=== PATIENT | male | born 1935 | race African-American/Black ===

== ENCOUNTER 2018-01-14 01:08 | Emergency (ER) | payer MEDICARE ==
[~2018-01-14] VITALS: Ht 177.8 cm; Wt 102.0 kg
[~2018-01-14 01:08] MED LIST: AMBRISENTAN 5 MG PO; AMLO10TA4 PO; CLON0.1T PO; FERR-63 PO; FLUT1DIS3 IH; FURO40TA5 PO; HYDR-4135 PO; MINO2.5T19 PO; OMEP20TA2 PO; POTA10CA42 PO; SIMV80TA70 PO
[2018-01-14 02:54] LABS: CLARITY URINE CLOUDY (CLEAR); COLOR URINE YELLOW (YELLOW); KETONES URINE NEGATIVE (NEGATIVE); LEUKOCYTE ESTERASE URINE 2+ (NEGATIVE); NITRITE URINE NEGATIVE (NEGATIVE); OCCULT BLOOD URINE 2+ (NEGATIVE); PROTEIN URINE 2+ (NEGATIVE); SPECIFIC GRAVITY URINE 1.015 (1.005-1.030)
[2018-01-14] MEDS ORDERED: CEPHALEXIN 500MG CAPSULE PO SCH (04:42)
[2018-01-14 05:27] VITALS: BP 121/74
== END 2018-01-14 05:30 | disposition home or self-care (01) ==
LOC: ER 01:08
DX: T83.098A Other mechanical complication of other urinary catheter, initial encounter (principal); N39.0 Urinary tract infection, site not specified; I11.0 Hypertensive heart disease with heart failure; I50.9 Heart failure, unspecified; J44.9 Chronic obstructive pulmonary disease, unspecified; I48.91 Unspecified atrial fibrillation; F20.9 Schizophrenia, unspecified; E11.9 Type 2 diabetes mellitus without complications; N40.0 Benign prostatic hyperplasia without lower urinary tract symptoms; Z86.73 Personal history of transient ischemic attack (TIA), and cerebral infarction without residual deficits
CPT/HCPCS: 51702; 81003; 87077; 87086; 87106; 87186; 99284; A4315

== ENCOUNTER 2018-03-07 23:52 | Inpatient (IN) | payer MEDICARE ==
[~2018-03-07] VITALS: Ht 177.8 cm; Wt 101.2 kg
[2018-03-08] MEDS ORDERED: ACETAMINOPHEN 325MG TABLET PO STA (00:05)
[2018-03-08] MEDS ORDERED: SODIUM CHLORIDE 0.9% 1000ML BAG (SEPSIS BOLUS) IV ONE (00:15)
[2018-03-08 01:51] LABS: BASOPHILS % 1.3 % (0.0-2.0); EOSINOPHILS % 0.8 % (0.0-5.0); HEMATOCRIT. 26.7 % (42.0-52.0); HEMOGLOBIN. 8.9 g/dL (14.0-18.0); LYMPHOCYTES % 21.8 % (20.0-50.0); MEAN CORPUSCULAR HEMOGLOBIN 28.5 pg (28.0-32.0); MEAN CORPUSCULAR VOLUME 85.8 fL (80.0-94.0); MEAN PLATELET VOLUME 8.6 fl (7.4-10.4); MONOCYTES % 11.8 % (2.0-8.0); NEUTROPHILS % 64.3 % (40.0-76.0); PLATELET 210 x1000/uL (130-400); RED BLOOD CELL COUNT 3.12 mill/uL (4.7-6.1); RED CELL DISTRIBUTION WIDTH 16.9 % (11.6-14.6)
[2018-03-08] MEDS ORDERED: PIPERACILLIN/TAZ 3.375G PREMIX 50 ML IV ONE (02:00)
[2018-03-08] MEDS ORDERED: VANCOMYCIN 1 G PREMIX 200 ML IV ONE (02:00)
[2018-03-08 02:03] LABS: CHLORIDE 106 mEq/L (98-107)
[2018-03-08 02:06] LABS: INR 1.1; PROTHROMBIN TIME 11.9 sec (9.4-11.6)
[2018-03-08] MEDS ORDERED: PIPERACILLIN/TAZ 3.375G PREMIX 50 ML IV SCH (02:39)
[2018-03-08 02:44] LABS: CLARITY URINE CLOUDY (CLEAR); COLOR URINE YELLOW (YELLOW); KETONES URINE NEGATIVE (NEGATIVE); LEUKOCYTE ESTERASE URINE 2+ (NEGATIVE); NITRITE URINE NEGATIVE (NEGATIVE); OCCULT BLOOD URINE NEGATIVE (NEGATIVE); PH URINE >=9.0 (4.5-8.0); PROTEIN URINE 1+ (NEGATIVE); SPECIFIC GRAVITY URINE 1.012 (1.005-1.030); UROBILINOGEN URINE 0.2 E.U./dL (0.2-1.0)
[2018-03-08] MEDS ORDERED: ACETAMINOPHEN 325MG TABLET PO PRN (19:15)
[2018-03-08] MEDS ORDERED: IPRATROPIUM/ALBUTEROL 0.5-3(2.5)MG/3ML NEB INH PRN (19:15)
[2018-03-08] MEDS ORDERED: ONDANSETRON HCL 4MG/2ML VIAL IV PRN (19:15)
[2018-03-08] MEDS ORDERED: MAGNESIUM/ALUMINUM HYDROXIDE/SIMETHICONE 30ML UDC PO PRN (19:15)
[2018-03-08] MEDS ORDERED: CLONIDINE 0.1MG TABLET PO PRN (19:15)
[2018-03-08] MEDS ORDERED: HYDROCODONE/ACETAMINOPHEN 5/325MG TABLET PO PRN (19:15)
[2018-03-08 20:00] VITALS: BP 163/76
[2018-03-08 21:00] VITALS: BP 163/76
[2018-03-08] MEDS ORDERED: ROCEPHIN IVPB XX SCH (21:15)
[2018-03-08] MEDS: FUROSEMIDE 40MG/4ML VIAL IV SCH (21:40)
[2018-03-08] MEDS: ENOXAPARIN 40MG/0.4ML SYR SUBCUT SCH (21:40)
[2018-03-08] MEDS: CEFTRIAXONE 1 G PREMIX 50 ML IV SCH (21:40)
[2018-03-08] MEDS: AMLODIPINE 10MG TABLET PO SCH (22:14)
[2018-03-08] MEDS: FERROUS SULFATE 325MG TABLET PO SCH (22:14)
[2018-03-09] VITALS: BP 136/60
[2018-03-09 02:12] LABS: *AMPHETAMINES SCREEN URINE NEGATIVE (NEGATIVE); *BARBITURATES SCREEN URINE NEGATIVE (NEGATIVE); *BENZODIAZEPINES SCREEN URINE NEGATIVE (NEGATIVE); *COCAINE SCREEN URINE NEGATIVE (NEGATIVE)
[2018-03-09 02:13] LABS: CANNABINOID URINE SCREEN NEGATIVE (NEGATIVE); METHADONE URINE SCREEN NEGATIVE (NEGATIVE); OPIATES URINE SCREEN NEGATIVE (NEGATIVE); PHENCYCLIDINE URINE SCREEN NEGATIVE (NEGATIVE)
[2018-03-09 04:00] VITALS: BP 109/57
[2018-03-09 08:00] VITALS: BP 122/57
[2018-03-09 08:06] LABS: AMMONIA 19 uMol/L (<32)
[2018-03-09] MEDS: FERROUS SULFATE 325MG TABLET PO SCH (08:49)
[2018-03-09] MEDS: AMLODIPINE 10MG TABLET PO SCH (08:50)
[2018-03-09] MEDS: FUROSEMIDE 40MG/4ML VIAL IV SCH (08:55)
[2018-03-09 09:19] LABS: CHLORIDE 104 mEq/L (98-107)
[2018-03-09 09:31] LABS: LDL CHOLESTEROL 132 mg/dL (5-100)
[2018-03-09 09:32] LABS: CREATINE KINASE 34 IU/L (39-308)
[2018-03-09 09:33] LABS: HDL CHOLESTEROL 32 mg/dL (40-59)
[2018-03-09 09:36] LABS: CREATINE KINASE MB FRACTION < 0.5 ng/mL (0.5-3.6)
[2018-03-09 12:00] VITALS: BP 116/52
[2018-03-09 12:09] LABS: HEMATOCRIT. 28.8 % (42.0-52.0); HEMOGLOBIN. 9.3 g/dL (14.0-18.0); MEAN CORPUSCULAR VOLUME 86.8 fL (80.0-94.0); MEAN PLATELET VOLUME 8.5 fl (7.4-10.4); PLATELET 215 x1000/uL (130-400); RED BLOOD CELL COUNT 3.32 mill/uL (4.7-6.1); RED CELL DISTRIBUTION WIDTH 16.9 % (11.6-14.6)
[2018-03-09] MEDS: CEFTRIAXONE 1 G PREMIX 50 ML IV SCH (14:12)
[2018-03-09 16:00] VITALS: BP 130/51
[2018-03-09 19:55] LABS: PLATELET ESTIMATE NORMAL
[2018-03-09 20:00] VITALS: BP 123/62
[2018-03-09] MEDS: IPRATROPIUM/ALBUTEROL 0.5-3(2.5)MG/3ML NEB HHN SCH (20:25)
[2018-03-09] MEDS: BUDESONIDE 0.5MG/2ML NEB HHN SCH (20:25)
[2018-03-09] MEDS: ATORVASTATIN CALCIUM 10MG TABLET PO SCH (21:52)
[2018-03-09] MEDS: ENOXAPARIN 40MG/0.4ML SYR SUBCUT SCH (21:52)
[2018-03-10] VITALS: BP 121/58
[2018-03-10] MEDS: IPRATROPIUM/ALBUTEROL 0.5-3(2.5)MG/3ML NEB HHN SCH ×4 (00:09→21:36)
[2018-03-10 04:00] VITALS: BP 135/58
[2018-03-10 08:00] VITALS: BP 145/63
[2018-03-10] MEDS: BUDESONIDE 0.5MG/2ML NEB HHN SCH ×2 (08:01→21:35)
[2018-03-10 08:46] LABS: HEMOGLOBIN. 9.8 g/dL (14.0-18.0); MEAN CORPUSCULAR HEMOGLOBIN 28.2 pg (28.0-32.0); MEAN CORPUSCULAR VOLUME 86.3 fL (80.0-94.0); MEAN PLATELET VOLUME 8.3 fl (7.4-10.4); PLATELET 234 x1000/uL (130-400); RED BLOOD CELL COUNT 3.48 mill/uL (4.7-6.1); RED CELL DISTRIBUTION WIDTH 16.5 % (11.6-14.6)
[2018-03-10 08:50] LABS: CHLORIDE 102 mEq/L (98-107)
[2018-03-10 09:04] LABS: CREATINE KINASE MB FRACTION < 0.5 ng/mL (0.5-3.6)
[2018-03-10] MEDS: FUROSEMIDE 40MG/4ML VIAL IV SCH (09:10)
[2018-03-10] MEDS: AMLODIPINE 10MG TABLET PO SCH (09:12)
[2018-03-10] MEDS: FERROUS SULFATE 325MG TABLET PO SCH ×2 (09:12→09:24)
[2018-03-10 09:15] LABS: PHOSPHORUS 3.2 mg/dL (2.5-4.9)
[2018-03-10 09:16] LABS: CREATINE KINASE 34 IU/L (39-308); LDL CHOLESTEROL 124 mg/dL (5-100)
[2018-03-10 09:19] LABS: HDL CHOLESTEROL 32 mg/dL (40-59)
[2018-03-10 12:00] VITALS: BP 130/62
[2018-03-10] MEDS ORDERED: POTASSIUM CHLORIDE 20MEQ/PACKET PO SCH (12:30)
[2018-03-10 13:47] LABS: PLATELET ESTIMATE NORMAL
[2018-03-10] MEDS ORDERED: MAGNESIUM 1 G PREMIX 100 ML IV SCH (14:00)
[2018-03-10] MEDS: CEFTRIAXONE 1 G PREMIX 50 ML IV SCH (14:00)
[2018-03-10] MEDS ORDERED: IOHEXOL-300 100 ML BOTTLE ONE (15:56)
[2018-03-10 16:00] VITALS: BP 137/61
[2018-03-10 20:00] VITALS: BP 121/52
[2018-03-10] MEDS: ATORVASTATIN CALCIUM 10MG TABLET PO SCH (21:20)
[2018-03-10] MEDS: ENOXAPARIN 40MG/0.4ML SYR SUBCUT SCH (21:21)
[2018-03-11] VITALS: BP 113/52
[2018-03-11] MEDS: IPRATROPIUM/ALBUTEROL 0.5-3(2.5)MG/3ML NEB HHN SCH ×4 (02:45→21:00)
[2018-03-11 04:00] VITALS: BP 100/56
[2018-03-11 06:52] LABS: HEMATOCRIT. 29.5 % (42.0-52.0); HEMOGLOBIN. 9.6 g/dL (14.0-18.0); MEAN CORPUSCULAR HEMOGLOBIN 27.9 pg (28.0-32.0); MEAN CORPUSCULAR VOLUME 85.8 fL (80.0-94.0); MEAN PLATELET VOLUME 8.1 fl (7.4-10.4); PLATELET 213 x1000/uL (130-400); RED BLOOD CELL COUNT 3.44 mill/uL (4.7-6.1); RED CELL DISTRIBUTION WIDTH 16.8 % (11.6-14.6)
[2018-03-11 07:05] LABS: CHLORIDE 101 mEq/L (98-107)
[2018-03-11 08:00] VITALS: BP 142/62
[2018-03-11] MEDS: BUDESONIDE 0.5MG/2ML NEB HHN SCH ×2 (08:36→21:01)
[2018-03-11] MEDS: AMLODIPINE 10MG TABLET PO SCH (08:52)
[2018-03-11] MEDS ORDERED: POTASSIUM CHLORIDE 20MEQ TABLET SR PO SCH (10:30)
[2018-03-11 10:49] LABS: PLATELET ESTIMATE NORMAL
[2018-03-11] MEDS: FUROSEMIDE 40MG/4ML VIAL IV SCH (11:33)
[2018-03-11 12:00] VITALS: BP 133/61
[2018-03-11] MEDS: CEFTRIAXONE 1 G PREMIX 50 ML IV SCH (14:51)
[2018-03-11 16:00] VITALS: BP 136/83
[2018-03-11 20:00] VITALS: BP 111/60
[2018-03-11] MEDS: ATORVASTATIN CALCIUM 10MG TABLET PO SCH (20:15)
[2018-03-12] VITALS: BP 118/61
[2018-03-12] MEDS: IPRATROPIUM/ALBUTEROL 0.5-3(2.5)MG/3ML NEB HHN SCH ×4 (00:49→19:59)
[2018-03-12 03:45] VITALS: BP 127/57
[2018-03-12 07:07] LABS: CHLORIDE 99 mEq/L (98-107)
[2018-03-12 07:19] LABS: HEMATOCRIT. 31.1 % (42.0-52.0); HEMOGLOBIN. 10.2 g/dL (14.0-18.0); MEAN CORPUSCULAR HEMOGLOBIN 28.4 pg (28.0-32.0); MEAN CORPUSCULAR VOLUME 86.7 fL (80.0-94.0); MEAN PLATELET VOLUME 8.4 fl (7.4-10.4); PLATELET 219 x1000/uL (130-400); RED BLOOD CELL COUNT 3.59 mill/uL (4.7-6.1); RED CELL DISTRIBUTION WIDTH 16.3 % (11.6-14.6)
[2018-03-12 08:00] VITALS: BP 151/66
[2018-03-12] MEDS: BUDESONIDE 0.5MG/2ML NEB HHN SCH (08:22)
[2018-03-12] MEDS: FERROUS SULFATE 325MG TABLET PO SCH (08:52)
[2018-03-12] MEDS: AMLODIPINE 10MG TABLET PO SCH (08:52)
[2018-03-12] MEDS: FUROSEMIDE 40MG/4ML VIAL IV SCH (09:29)
[2018-03-12 12:00] VITALS: BP 138/79
[2018-03-12 13:43] LABS: PLATELET ESTIMATE NORMAL
[2018-03-12] MEDS: CEFTRIAXONE 1 G PREMIX 50 ML IV SCH (15:23)
[2018-03-12 16:00] VITALS: BP 133/64
[2018-03-12 20:00] VITALS: BP 140/61
[2018-03-12] MEDS: ATORVASTATIN CALCIUM 10MG TABLET PO SCH (21:32)
[2018-03-13 00:26] VITALS: BP 133/60
[2018-03-13] MEDS: IPRATROPIUM/ALBUTEROL 0.5-3(2.5)MG/3ML NEB HHN SCH ×4 (01:09→19:50)
[2018-03-13 04:00] VITALS: BP 115/57
[2018-03-13 07:46] LABS: HEMATOCRIT. 31.7 % (42.0-52.0); HEMOGLOBIN. 10.2 g/dL (14.0-18.0); MEAN CORPUSCULAR HEMOGLOBIN 27.8 pg (28.0-32.0); MEAN CORPUSCULAR VOLUME 86.6 fL (80.0-94.0); MEAN PLATELET VOLUME 8.1 fl (7.4-10.4); PLATELET 230 x1000/uL (130-400); RED BLOOD CELL COUNT 3.66 mill/uL (4.7-6.1); RED CELL DISTRIBUTION WIDTH 16.6 % (11.6-14.6)
[2018-03-13 08:00] VITALS: BP 138/54
[2018-03-13] MEDS: AMLODIPINE 10MG TABLET PO SCH (09:13)
[2018-03-13] MEDS: FERROUS SULFATE 325MG TABLET PO SCH (09:13)
[2018-03-13] MEDS: FUROSEMIDE 40MG/4ML VIAL IV SCH (09:14)
[2018-03-13] MEDS ORDERED: DUTA1CPM4 MT (09:51)
[2018-03-13 09:56] LABS: PLATELET ESTIMATE NORMAL
[2018-03-13 10:36] LABS: CHLORIDE 100 mEq/L (98-107)
[2018-03-13 12:00] VITALS: BP 127/53
[2018-03-13] MEDS: CEFTRIAXONE 1 G PREMIX 50 ML IV SCH (15:42)
[2018-03-13 16:00] VITALS: BP 117/55
[2018-03-13] MEDS: TAMSULOSIN HCL 0.4MG SR CAPSULE PO SCH (16:20)
[2018-03-13] MEDS: DUTASTERIDE 0.5MG CAPSULE PO SCH (16:20)
[2018-03-13 17:09] LABS: CLARITY URINE CLEAR (CLEAR); COLOR URINE YELLOW (YELLOW); KETONES URINE NEGATIVE (NEGATIVE); LEUKOCYTE ESTERASE URINE 1+ (NEGATIVE); NITRITE URINE NEGATIVE (NEGATIVE); OCCULT BLOOD URINE 2+ (NEGATIVE); PH URINE 7.5 (4.5-8.0); PROTEIN URINE 1+ (NEGATIVE); SPECIFIC GRAVITY URINE 1.011 (1.005-1.030)
[2018-03-13] MEDS ORDERED: [UNRECOGNIZED DRUG - OTHER] MT SCH (18:00)
[2018-03-13] MEDS ORDERED: TAMSULOSIN HCL MT SCH (18:00)
[2018-03-13] MEDS ORDERED: DUTASTERIDE MT SCH (18:00)
[2018-03-13 20:00] VITALS: BP 124/62
[2018-03-13] MEDS: ATORVASTATIN CALCIUM 10MG TABLET PO SCH (21:49)
[2018-03-14] VITALS (7 sets, daily range): BP systolic 103–139; BP diastolic 55–61
[2018-03-14] MEDS: IPRATROPIUM/ALBUTEROL 0.5-3(2.5)MG/3ML NEB HHN SCH ×4 (02:07→20:22)
[2018-03-14] MEDS: AMLODIPINE 10MG TABLET PO SCH (09:27)
[2018-03-14] MEDS: FUROSEMIDE 40MG/4ML VIAL IV SCH (09:27)
[2018-03-14] MEDS: FERROUS SULFATE 325MG TABLET PO SCH (09:27)
[2018-03-14] MEDS: CEFTRIAXONE 1 G PREMIX 50 ML IV SCH (14:52)
[2018-03-14] MEDS: DUTASTERIDE 0.5MG CAPSULE PO SCH (16:09)
[2018-03-14] MEDS: TAMSULOSIN HCL 0.4MG SR CAPSULE PO SCH (16:11)
[2018-03-14] MEDS ORDERED: DOCUSATE SODIUM 100MG CAPSULE PO PRN (18:15)
[2018-03-14] MEDS: ATORVASTATIN CALCIUM 10MG TABLET PO SCH (21:04)
[2018-03-15] VITALS: BP 124/62
[2018-03-15] MEDS: IPRATROPIUM/ALBUTEROL 0.5-3(2.5)MG/3ML NEB HHN SCH ×2 (02:52→11:37)
[2018-03-15 04:00] VITALS: BP 103/59
[2018-03-15 06:56] LABS: CHLORIDE 98 mEq/L (98-107)
[2018-03-15 07:00] LABS: HEMATOCRIT. 33.1 % (42.0-52.0); HEMOGLOBIN. 10.7 g/dL (14.0-18.0); MEAN CORPUSCULAR HEMOGLOBIN 27.7 pg (28.0-32.0); MEAN CORPUSCULAR VOLUME 86.1 fL (80.0-94.0); MEAN PLATELET VOLUME 8.5 fl (7.4-10.4); PLATELET 232 x1000/uL (130-400); RED BLOOD CELL COUNT 3.85 mill/uL (4.7-6.1); RED CELL DISTRIBUTION WIDTH 16.6 % (11.6-14.6)
[2018-03-15 08:00] VITALS: BP 129/60
[2018-03-15] MEDS: FERROUS SULFATE 325MG TABLET PO SCH (08:51)
[2018-03-15] MEDS: AMLODIPINE 10MG TABLET PO SCH (08:52)
[2018-03-15] MEDS: FUROSEMIDE 40MG/4ML VIAL IV SCH (08:52)
[2018-03-15 09:34] LABS: ATYPICAL LYMPHOCYTES 2; PLATELET ESTIMATE NORMAL
[2018-03-15 11:03] VITALS: BP 126/69
[2018-03-15 12:00] VITALS: BP 139/58
== END 2018-03-15 14:05 | disposition home or self-care (01) | DRG 871 ==
LOC: ER 23:52 → 7WST 03-08 03:57 → EDBEDREQ 03-08 04:11 → EDBEDREQTM 03-08 04:11 → EDBEDREQSVC 03-08 04:11 → ENRESERV 03-08 19:30
PROVIDERS: ADMIT Internal Medicine; ATTEND Internal Medicine
DX: A41.59 Other Gram-negative sepsis (principal); J96.00 Acute respiratory failure, unspecified whether with hypoxia or hypercapnia; I50.43 Acute on chronic combined systolic (congestive) and diastolic (congestive) heart failure; N17.9 Acute kidney failure, unspecified; I42.9 Cardiomyopathy, unspecified; I31.3 Pericardial effusion (noninflammatory); E44.0 Moderate protein-calorie malnutrition; N39.0 Urinary tract infection, site not specified; I69.354 Hemiplegia and hemiparesis following cerebral infarction affecting left non-dominant side; B96.4 Proteus (mirabilis) (morganii) as the cause of diseases classified elsewhere; T50.2X5A Adverse effect of carbonic-anhydrase inhibitors, benzothiadiazides and other diuretics, initial encounter; I11.0 Hypertensive heart disease with heart failure; I48.0 Paroxysmal atrial fibrillation; D64.9 Anemia, unspecified; E11.9 Type 2 diabetes mellitus without complications; E78.5 Hyperlipidemia, unspecified; E87.6 Hypokalemia; F20.9 Schizophrenia, unspecified; I25.10 Atherosclerotic heart disease of native coronary artery without angina pectoris; I27.20 Pulmonary hypertension, unspecified; I44.7 Left bundle-branch block, unspecified; I48.2 Chronic atrial fibrillation; I71.2 Thoracic aortic aneurysm, without rupture; J44.9 Chronic obstructive pulmonary disease, unspecified; N40.1 Benign prostatic hyperplasia with lower urinary tract symptoms; R13.10 Dysphagia, unspecified; R33.8 Other retention of urine; Z79.4 Long term (current) use of insulin; Z93.1 Gastrostomy status; I25.2 Old myocardial infarction; Z79.899 Other long term (current) drug therapy; Z74.01 Bed confinement status; Y92.89 Other specified places as the place of occurrence of the external cause; Z68.32 Body mass index [BMI] 32.0-32.9, adult
CPT/HCPCS: 36415; 71045; 71260; 74018; 80048; 80053; 80061; 80305; 81003; 82140; 82550; 82553; 82962; 83036; 83605; 83735; 83880; 84100; 84443; 84484; 85025; 85379; 85610; 87040; 87077; 87086; 87186; 92610; 93005; 93306; 93970; 94640; 96361; 96365; 96367; 97116; 97162; 97166; 99291; A6261; J0696; J1650; J1940; J2543; J3370; J3475; J7030; J7040; J7620; J7626; Q9967

== ENCOUNTER → 2018-05-15 | Outpatient (CLI) | payer MEDICARE ==
[~2018-05-15] MED LIST changes: +DUTA1CPM4 MT
== END | disposition home or self-care (01) ==
LOC: CT 11:05
PROVIDERS: ATTEND Internal Medicine Critical Care Medicine
DX: R91.8 Other nonspecific abnormal finding of lung field (principal); I10 Essential (primary) hypertension; J44.9 Chronic obstructive pulmonary disease, unspecified
CPT/HCPCS: 71250

== ENCOUNTER 2022-02-28 16:26 | Inpatient (IN) | payer MEDICARE ==
[~2022-02-28] VITALS: Ht 172.7 cm; Wt 101.2 kg
[~2022-02-28 16:26] MED LIST changes: +LEVO750T46 MT; -OMEP20TA2 PO; +OMEP20TA23 PO; -SIMV80TA70 PO; +SIMV80TA90 PO
[2022-02-28 18:10] LABS: HEMATOCRIT. 34.5 % (42.0-52.0); HEMOGLOBIN. 11.2 g/dL (14.0-18.0); MEAN CORPUSCULAR HEMOGLOBIN 29.1 pg (28.0-32.0); MEAN CORPUSCULAR VOLUME 89.8 fL (80.0-94.0); MEAN PLATELET VOLUME 7.8 fl (7.4-10.4); PLATELET 245 x1000/uL (130-400); RED BLOOD CELL COUNT 3.84 mill/uL (4.7-6.1); RED CELL DISTRIBUTION WIDTH 15.6 % (11.6-14.6)
[2022-02-28 19:55] LABS: PLATELET ESTIMATE NORMAL
[2022-02-28 21:53] LABS: CHLORIDE 100 mEq/L (98-107)
[2022-02-28] MEDS: PIPERACILLIN/TAZ 3.375G PREMIX 50 ML IV NR ×2 (22:12→22:56)
[2022-03-01 01:44] LABS: CHLORIDE 100 mEq/L (98-107)
[2022-03-01 06:15] VITALS: BP 128/57
[2022-03-01 08:00] VITALS: BP 118/56
[2022-03-01] MEDS ORDERED: ACETAMINOPHEN 325MG TABLET PO PRN (09:45)
[2022-03-01] MEDS ORDERED: DIPHENHYDRAMINE 50MG/ML VIAL IV PRN (09:45)
[2022-03-01] MEDS ORDERED: CLONIDINE 0.1MG TABLET PO PRN (09:45)
[2022-03-01] MEDS ORDERED: ONDANSETRON HCL 4MG/2ML INJ IV PRN (09:45)
[2022-03-01] MEDS ORDERED: IPRATROPIUM/ALBUTEROL 0.5-3(2.5)MG/3ML NEB HHN PRN (09:45)
[2022-03-01] MEDS: SODIUM CHLORIDE 0.9% 1,000 ML IV SCH (11:00)
[2022-03-01 12:00] VITALS: BP_SYST 115; BP_SYST 124; BP_DIAS 59; BP_DIAS 64
[2022-03-01] MEDS: CEFTRIAXONE 1,000 MG in DEXTROSE 5% WATER 50 ML IV SCH (13:36)
[2022-03-01] MEDS: AZITHROMYCIN 500 MG in DEXT 5% WATER 250 ML IV SCH (13:37)
[2022-03-01] MEDS: HYDRALAZINE HCL 50MG TABLET PO SCH ×2 (14:28→21:04)
[2022-03-01 16:00] VITALS: BP 124/59
[2022-03-01 16:58] LABS: CREATINE KINASE 183 IU/L (39-308)
[2022-03-01] MEDS: CLONIDINE 0.1MG TABLET PO SCH (17:00)
[2022-03-01] MEDS: MINOXIDIL 2.5MG TABLET PO SCH (17:00)
[2022-03-01 19:24] VITALS: BP 140/70
[2022-03-01 20:00] VITALS: BP 125/48
[2022-03-02 03:55] VITALS: BP 127/60
[2022-03-02 04:00] VITALS: BP 138/52
[2022-03-02] MEDS: SODIUM CHLORIDE 0.9% 1,000 ML IV SCH ×2 (05:16→21:05)
[2022-03-02] MEDS: OMEPRAZOLE 20MG CAPSULE EXTENDED RELEASE PO SCH (06:58)
[2022-03-02] MEDS: HYDRALAZINE HCL 50MG TABLET PO SCH ×3 (06:59→21:06)
[2022-03-02 08:00] VITALS: BP 103/55
[2022-03-02 08:05] LABS: HEMATOCRIT. 34.6 % (42.0-52.0); HEMOGLOBIN. 11.2 g/dL (14.0-18.0); MEAN CORPUSCULAR HEMOGLOBIN 28.9 pg (28.0-32.0); MEAN CORPUSCULAR VOLUME 89.6 fL (80.0-94.0); MEAN PLATELET VOLUME 7.7 fl (7.4-10.4); PLATELET 211 x1000/uL (130-400); RED BLOOD CELL COUNT 3.87 mill/uL (4.7-6.1); RED CELL DISTRIBUTION WIDTH 14.9 % (11.6-14.6)
[2022-03-02 08:19] LABS: CHLORIDE 101 mEq/L (98-107)
[2022-03-02] MEDS: FUROSEMIDE 40MG TABLET PO SCH (09:19)
[2022-03-02] MEDS: MINOXIDIL 2.5MG TABLET PO SCH ×2 (09:19→17:08)
[2022-03-02] MEDS: FERROUS SULFATE 325MG TABLET PO SCH (09:19)
[2022-03-02] MEDS: AMLODIPINE 10MG TABLET PO SCH (09:19)
[2022-03-02] MEDS: CLONIDINE 0.1MG TABLET PO SCH ×2 (09:23→17:08)
[2022-03-02] MEDS: CEFTRIAXONE 1,000 MG in DEXTROSE 5% WATER 50 ML IV SCH (11:37)
[2022-03-02 12:00] VITALS: BP 120/50
[2022-03-02] MEDS: AZITHROMYCIN 500 MG in DEXT 5% WATER 250 ML IV SCH (12:39)
[2022-03-02 16:00] VITALS: BP 117/53
[2022-03-02 20:00] VITALS: BP 95/60
[2022-03-03] VITALS: BP 117/57
[2022-03-03 04:00] VITALS: BP 160/55
[2022-03-03] MEDS: OMEPRAZOLE 20MG CAPSULE EXTENDED RELEASE PO SCH (06:25)
[2022-03-03] MEDS: HYDRALAZINE HCL 50MG TABLET PO SCH ×3 (06:25→22:19)
[2022-03-03 06:33] LABS: HEMOGLOBIN. 11.6 g/dL (14.0-18.0); MEAN CORPUSCULAR HEMOGLOBIN 28.7 pg (28.0-32.0); MEAN CORPUSCULAR VOLUME 89.3 fL (80.0-94.0); MEAN PLATELET VOLUME 7.7 fl (7.4-10.4); PLATELET 204 x1000/uL (130-400); RED BLOOD CELL COUNT 4.03 mill/uL (4.7-6.1); RED CELL DISTRIBUTION WIDTH 15.5 % (11.6-14.6)
[2022-03-03 08:00] VITALS: BP 128/56
[2022-03-03] MEDS: MINOXIDIL 2.5MG TABLET PO SCH ×2 (09:11→17:46)
[2022-03-03] MEDS: AMLODIPINE 10MG TABLET PO SCH (09:12)
[2022-03-03] MEDS: AZITHROMYCIN 500 MG TABLET PO SCH (09:12)
[2022-03-03] MEDS: FUROSEMIDE 40MG TABLET PO SCH (09:12)
[2022-03-03] MEDS: FERROUS SULFATE 325MG TABLET PO SCH (09:12)
[2022-03-03] MEDS: CLONIDINE 0.1MG TABLET PO SCH ×2 (09:13→17:46)
[2022-03-03] MEDS: CEFTRIAXONE 1,000 MG in DEXTROSE 5% WATER 50 ML IV SCH (11:30)
[2022-03-03 12:00] VITALS: BP 130/61
[2022-03-03] MEDS: SODIUM CHLORIDE 0.9% 1,000 ML IV SCH (13:07)
[2022-03-03 14:20] LABS: PLATELET ESTIMATE NORMAL
[2022-03-03 16:00] VITALS: BP 127/55
[2022-03-03 20:00] VITALS: BP 157/55
[2022-03-03 21:16] LABS: PLATELET ESTIMATE NORMAL
[2022-03-04] VITALS: BP 151/58
[2022-03-04 04:00] VITALS: BP 135/52
[2022-03-04] MEDS: SODIUM CHLORIDE 0.9% 1,000 ML IV SCH (05:05)
[2022-03-04] MEDS: HYDRALAZINE HCL 50MG TABLET PO SCH ×3 (05:53→21:10)
[2022-03-04 06:43] LABS: HEMATOCRIT. 33.6 % (42.0-52.0); HEMOGLOBIN. 11.1 g/dL (14.0-18.0); MEAN CORPUSCULAR HEMOGLOBIN 29.2 pg (28.0-32.0); MEAN CORPUSCULAR VOLUME 88.5 fL (80.0-94.0); MEAN PLATELET VOLUME 7.9 fl (7.4-10.4); PLATELET 218 x1000/uL (130-400); RED BLOOD CELL COUNT 3.79 mill/uL (4.7-6.1); RED CELL DISTRIBUTION WIDTH 15.3 % (11.6-14.6)
[2022-03-04 08:00] VITALS: BP 159/61
[2022-03-04] MEDS: MINOXIDIL 2.5MG TABLET PO SCH ×2 (09:12→18:24)
[2022-03-04] MEDS: FAMOTIDINE 20MG TABLET PO SCH (09:13)
[2022-03-04] MEDS: FERROUS SULFATE 325MG TABLET PO SCH (09:13)
[2022-03-04] MEDS: AMLODIPINE 10MG TABLET PO SCH (09:13)
[2022-03-04] MEDS: AZITHROMYCIN 500 MG TABLET PO SCH (09:13)
[2022-03-04] MEDS: FUROSEMIDE 40MG TABLET PO SCH (09:13)
[2022-03-04] MEDS: CLONIDINE 0.1MG TABLET PO SCH ×2 (09:13→18:24)
[2022-03-04 12:00] VITALS: BP 138/58
[2022-03-04] MEDS ORDERED: SODIUM CHLORIDE 0.45% 1,000 ML IV SCH (12:30)
[2022-03-04] MEDS ORDERED: FUROSEMIDE 40MG/4ML VIAL IVP SCH (14:00)
[2022-03-04 16:00] VITALS: BP 128/60
[2022-03-04] MEDS: CEFTRIAXONE 1,000 MG in DEXTROSE 5% WATER 50 ML IV SCH (18:23)
[2022-03-04 20:00] VITALS: BP 125/58
[2022-03-05] VITALS: BP 108/58
[2022-03-05 04:00] VITALS: BP 119/76
[2022-03-05] MEDS: HYDRALAZINE HCL 50MG TABLET PO SCH ×3 (06:08→21:20)
[2022-03-05 08:14] LABS: PLATELET ESTIMATE NORMAL
[2022-03-05] MEDS: CLONIDINE 0.1MG TABLET PO SCH ×2 (09:00→17:00)
[2022-03-05] MEDS: MINOXIDIL 2.5MG TABLET PO SCH ×2 (09:00→17:00)
[2022-03-05] MEDS ORDERED: SODIUM POLYSTYRENE SULFONATE 15 G/60 ML BOT PO NR (09:15)
[2022-03-05 09:30] VITALS: BP 116/54
[2022-03-05] MEDS: FERROUS SULFATE 325MG TABLET PO SCH (10:10)
[2022-03-05] MEDS: FAMOTIDINE 20MG TABLET PO SCH (10:10)
[2022-03-05 10:27] LABS: CREATINE KINASE 114 IU/L (39-308)
[2022-03-05] MEDS: AMLODIPINE 10MG TABLET PO SCH (10:46)
[2022-03-05 12:00] VITALS: BP 119/53
[2022-03-05 13:06] LABS: ANTI-NUCLEAR ANTIBODIES DIRECT Negative (Negative)
[2022-03-05 16:00] VITALS: BP 126/55
[2022-03-05 20:00] VITALS: BP 96/51
[2022-03-06] VITALS: BP 119/67
[2022-03-06 04:00] VITALS: BP 128/70
[2022-03-06] MEDS: HYDRALAZINE HCL 50MG TABLET PO SCH ×3 (05:54→21:47)
[2022-03-06 08:00] VITALS: BP 121/54
[2022-03-06] MEDS: MINOXIDIL 2.5MG TABLET PO SCH ×2 (08:48→17:00)
[2022-03-06] MEDS: CLONIDINE 0.1MG TABLET PO SCH ×2 (08:48→17:00)
[2022-03-06] MEDS: AMLODIPINE 10MG TABLET PO SCH (08:48)
[2022-03-06 09:06] LABS: HEMATOCRIT. 34.2 % (42.0-52.0); HEMOGLOBIN. 10.9 g/dL (14.0-18.0); MEAN CORPUSCULAR HEMOGLOBIN 28.5 pg (28.0-32.0); MEAN CORPUSCULAR VOLUME 89.6 fL (80.0-94.0); MEAN PLATELET VOLUME 7.6 fl (7.4-10.4); PLATELET 206 x1000/uL (130-400); RED BLOOD CELL COUNT 3.82 mill/uL (4.7-6.1); RED CELL DISTRIBUTION WIDTH 15.3 % (11.6-14.6)
[2022-03-06] MEDS: FAMOTIDINE 20MG TABLET PO SCH (10:04)
[2022-03-06] MEDS: FERROUS SULFATE 325MG TABLET PO SCH (10:04)
[2022-03-06 10:08] LABS: PHOSPHORUS 4.1 mg/dL (2.5-4.9)
[2022-03-06 10:17] LABS: PLATELET ESTIMATE NORMAL
[2022-03-06 12:00] VITALS: BP 132/52
[2022-03-06 14:08] LABS: CLARITY URINE CLEAR (CLEAR); COLOR URINE YELLOW (YELLOW); KETONES URINE NEGATIVE (NEGATIVE); LEUKOCYTE ESTERASE URINE NEGATIVE (NEGATIVE); NITRITE URINE NEGATIVE (NEGATIVE); OCCULT BLOOD URINE NEGATIVE (NEGATIVE); PROTEIN URINE TRACE (NEGATIVE); SPECIFIC GRAVITY URINE 1.012 (1.005-1.030)
[2022-03-06 16:00] VITALS: BP 127/52
[2022-03-06 20:00] VITALS: BP 142/57
[2022-03-07] VITALS: BP 146/60
[2022-03-07 04:00] VITALS: BP 144/61
[2022-03-07] MEDS: HYDRALAZINE HCL 50MG TABLET PO SCH ×2 (06:09→14:31)
[2022-03-07 06:52] LABS: HEMATOCRIT. 34.7 % (42.0-52.0); HEMOGLOBIN. 11.2 g/dL (14.0-18.0); MEAN CORPUSCULAR HEMOGLOBIN 28.6 pg (28.0-32.0); MEAN CORPUSCULAR VOLUME 89.1 fL (80.0-94.0); MEAN PLATELET VOLUME 7.8 fl (7.4-10.4); PLATELET 200 x1000/uL (130-400); RED CELL DISTRIBUTION WIDTH 15.1 % (11.6-14.6)
[2022-03-07 08:00] VITALS: BP 125/53
[2022-03-07] MEDS: AMLODIPINE 10MG TABLET PO SCH (08:28)
[2022-03-07] MEDS: MINOXIDIL 2.5MG TABLET PO SCH ×2 (08:28→16:55)
[2022-03-07] MEDS: CLONIDINE 0.1MG TABLET PO SCH ×2 (08:28→16:55)
[2022-03-07] MEDS: FAMOTIDINE 20MG TABLET PO SCH (08:28)
[2022-03-07] MEDS: FERROUS SULFATE 325MG TABLET PO SCH (08:28)
[2022-03-07 12:00] VITALS: BP 122/49
[2022-03-07 13:40] VITALS: BP 122/48
[2022-03-07 13:59] LABS: PLATELET ESTIMATE NORMAL
[2022-03-07 16:00] VITALS: BP 118/56
== END 2022-03-07 19:02 | disposition home health service (06) | DRG 291 ==
LOC: ER 16:26 → 6EST 19:37 → ENRESERV 03-01 05:12 → ER 03-01 07:37
PROVIDERS: ADMIT Internal Medicine; ATTEND Internal Medicine
DX: I13.0 Hypertensive heart and chronic kidney disease with heart failure and stage 1 through stage 4 chronic kidney disease, or unspecified chronic kidney disease (principal); I50.31 Acute diastolic (congestive) heart failure; J96.01 Acute respiratory failure with hypoxia; J18.9 Pneumonia, unspecified organism; N17.8 Other acute kidney failure; J44.0 Chronic obstructive pulmonary disease with (acute) lower respiratory infection; N18.9 Chronic kidney disease, unspecified; E11.22 Type 2 diabetes mellitus with diabetic chronic kidney disease; D69.6 Thrombocytopenia, unspecified; D64.9 Anemia, unspecified; M48.061 Spinal stenosis, lumbar region without neurogenic claudication; M48.02 Spinal stenosis, cervical region; E87.5 Hyperkalemia; H54.3 Unqualified visual loss, both eyes; N40.0 Benign prostatic hyperplasia without lower urinary tract symptoms; Z86.73 Personal history of transient ischemic attack (TIA), and cerebral infarction without residual deficits; I67.1 Cerebral aneurysm, nonruptured; N43.3 Hydrocele, unspecified; Z20.822 Contact with and (suspected) exposure to COVID-19
CPT/HCPCS: 36415; 71045; 76770; 76870; 80048; 80053; 81003; 82550; 83605; 83735; 83880; 84100; 84145; 84484; 85025; 86038; 86160; 87426; 93005; 93306; 93970; 93976; 97162; 97530; 99285; C9803; J0456; J0696; J1940; J2543; J7030; J7060

== ENCOUNTER 2024-10-03 18:45 | Inpatient (IN) | payer MEDICARE ==
[~2024-10-03] VITALS: Ht 175.3 cm; Wt 99.6 kg
[~2024-10-03 18:45] MED LIST changes: -AMBRISENTAN 5 MG PO; -AMLO10TA4 PO; +AMLO5TAB88 PO; +ATOR10TA PO; -CLON0.1T PO; -DUTA1CPM4 MT; +ERGO2000 PO; -HYDR-4135 PO; -LEVO750T46 MT; +METO25TA6 PO; -MINO2.5T19 PO; -POTA10CA42 PO; -SIMV80TA90 PO; +TAMS-11 PO
[2024-10-03 18:51] VITALS: O2SAT 94
[2024-10-03 21:30] LABS: HEMATOCRIT. 33.4 % (42.0-52.0); HEMOGLOBIN. 11.1 g/dL (14.0-18.0); MEAN CORPUSCULAR HEMOGLOBIN 30.6 pg (28.0-32.0); MEAN CORPUSCULAR HGB CONC 33.2 g/dL (31.0-37.0); MEAN CORPUSCULAR VOLUME 92.2 fL (80.0-94.0); MEAN PLATELET VOLUME 7.7 fl (7.4-10.4); PLATELET 173 x1000/uL (130-400); RED BLOOD CELL COUNT 3.62 mill/uL (4.7-6.1); RED CELL DISTRIBUTION WIDTH 13.6 % (11.6-14.6); WHITE BLOOD COUNT 3.2 x1000/uL (4.5-11.0)
[2024-10-03 21:33] LABS: DIFFERENTIAL COMMENT 1
[2024-10-03 21:36] LABS: CARBON DIOXIDE 26 mEq/L (21-32); CHLORIDE 93 mEq/L (98-107); POTASSIUM 5.1 mEq/L (3.5-5.1); SODIUM 125 mEq/L (136-145)
[2024-10-03 21:37] LABS: CALCIUM 8.9 mg/dL (8.7-10.4)
[2024-10-03 21:42] LABS: CREATININE 1.8 mg/dL (0.6-1.3); GLUCOSE 96 mg/dL (70-105); UREA NITROGEN BLOOD 29 mg/dL (9-23)
[2024-10-03 21:44] LABS: ALANINE AMINOTRANSFERASE 9 IU/L (10-49); ALBUMIN 3.8 g/dL (3.2-4.8); ASPARTATE AMINOTRANSFERASE 19 IU/L (<34); BILIRUBIN DIRECT 0.2 mg/dL (<=3.0); BILIRUBIN TOTAL 0.5 mg/dL (0.1-1.0); PROTEIN TOTAL 7.2 g/dL (6.0-8.3); TROPONIN I HIGH SENSITIVITY 25 ng/L (3.0-53)
[2024-10-03 22:10] LABS: PLATELET ESTIMATE NORMAL
[2024-10-04] MEDS ORDERED: ACETAMINOPHEN 325MG TABLET PO PRN ×2 (03:45)
[2024-10-04] MEDS ORDERED: ONDANSETRON HCL 4MG/2ML INJ IV PRN (03:45)
[2024-10-04] MEDS ORDERED: GUAIFENESIN 200MG/10ML SUGAR FREE UDC PO PRN (03:45)
[2024-10-04] MEDS ORDERED: CLONIDINE 0.1MG TABLET PO PRN (03:45)
[2024-10-04] MEDS ORDERED: DOCUSATE SODIUM 100MG CAPSULE PO PRN (03:45)
[2024-10-04] MEDS ORDERED: IPRATROPIUM/ALBUTEROL 0.5-3(2.5)MG/3ML NEB HHN PRN (03:45)
[2024-10-04] MEDS ORDERED: MAGNESIUM/ALUMINUM HYDROXIDE/SIMETHICONE 30ML UDC PO PRN (03:45)
[2024-10-04] MEDS ORDERED: FUROSEMIDE 40MG/4ML VIAL IVP NR (04:00)
[2024-10-04] MEDS ORDERED: AZITHROMYCIN 500MG/250ML 250 ML IV SCH (04:30)
[2024-10-04] MEDS ORDERED: SODIUM ZIRCONIUM CYCLOSILICATE 10GM/PACKET PO NR (05:00)
[2024-10-04] MEDS ORDERED: CEFTRIAXONE 1GM/50ML 50 ML IV SCH (06:00)
[2024-10-04 10:53] LABS: CHLORIDE 91 mEq/L (98-107); POTASSIUM 5.2 mEq/L (3.5-5.1); SODIUM 124 mEq/L (136-145)
[2024-10-04 10:54] LABS: CALCIUM 9.4 mg/dL (8.7-10.4); CARBON DIOXIDE 26 mEq/L (21-32)
[2024-10-04 10:59] LABS: GLUCOSE 106 mg/dL (70-105); IRON 45 ug/dL (65-175)
[2024-10-04 11:00] LABS: UREA NITROGEN BLOOD 31 mg/dL (9-23)
[2024-10-04 11:01] LABS: CREATINE KINASE 105 IU/L (46-171); LACTATE DEHYDROGENASE 150 IU/L (120-246)
[2024-10-04 11:02] LABS: TOTAL IRON BINDING CAPACITY 283 ug/dl (250-425)
[2024-10-04 11:22] LABS: BASOPHILS % 0.6 % (0.0-2.0); EOSINOPHILS % 0.3 % (0.0-5.0); HEMATOCRIT. 33.8 % (42.0-52.0); HEMOGLOBIN. 11.3 g/dL (14.0-18.0); LYMPHOCYTES % 20.6 % (20.0-50.0); MEAN CORPUSCULAR HEMOGLOBIN 30.8 pg (28.0-32.0); MEAN CORPUSCULAR HGB CONC 33.5 g/dL (31.0-37.0); MEAN CORPUSCULAR VOLUME 91.9 fL (80.0-94.0); MEAN PLATELET VOLUME 7.8 fl (7.4-10.4); MONOCYTES % 14.1 % (2.0-8.0); NEUTROPHILS % 64.4 % (40.0-76.0); PLATELET 199 x1000/uL (130-400); RED BLOOD CELL COUNT 3.68 mill/uL (4.7-6.1); RED CELL DISTRIBUTION WIDTH 13.6 % (11.6-14.6); WHITE BLOOD COUNT 3.2 x1000/uL (4.5-11.0)
[2024-10-04 11:44] LABS: FOLIC ACID (FOLATE) SERUM 10.34 ng/mL (>5.38); VITAMIN B12 SERUM 481 pg/mL (211-911)
[2024-10-04 11:45] LABS: FERRITIN 95 ng/mL (22-322)
[2024-10-05] VITALS (7 sets, daily range): BP systolic 103–138; BP diastolic 40–87; PULSE 65–84; RESP 15–20; TEMP 35.9–37.1; O2SAT 96–100
[2024-10-05] MEDS: SODIUM CHLORIDE 0.9% 1,000 ML IV SCH (00:48)
[2024-10-05] MEDS: FUROSEMIDE 40MG/4ML VIAL IVP NR (00:51)
[2024-10-05] MEDS: CEFTRIAXONE 1GM/50ML 50 ML IV SCH (01:17)
[2024-10-05] MEDS: SODIUM ZIRCONIUM CYCLOSILICATE 10GM/PACKET PO NR (01:53)
[2024-10-05] MEDS: AZITHROMYCIN 500MG/250ML 250 ML IV SCH (05:26)
[2024-10-05 07:45] LABS: CARBON DIOXIDE 31 mEq/L (21-32); CHLORIDE 95 mEq/L (98-107); POTASSIUM 4.7 mEq/L (3.5-5.1); SODIUM 130 mEq/L (136-145)
[2024-10-05 07:46] LABS: CALCIUM 9.1 mg/dL (8.7-10.4)
[2024-10-05 07:51] LABS: CREATININE 1.8 mg/dL (0.6-1.3); GLUCOSE 81 mg/dL (70-105); TRIGLYCERIDE 37 mg/dL (0-150); UREA NITROGEN BLOOD 32 mg/dL (9-23)
[2024-10-05 07:52] LABS: LDL CHOLESTEROL 61 mg/dL (5-100)
[2024-10-05 07:53] LABS: CHOLESTEROL 134 mg/dL (<200); HDL CHOLESTEROL 50 mg/dL (>55); PHOSPHORUS 3.8 mg/dL (2.5-4.9); THYROID STIMULATING HORMONE 1.07 uIU/mL (0.55-4.78)
[2024-10-05 07:59] LABS: TROPONIN I HIGH SENSITIVITY 59 ng/L (3.0-53)
[2024-10-05] MEDS: FAMOTIDINE 20MG/2ML VIAL IV SCH (08:57)
[2024-10-05] MEDS: ENOXAPARIN 30MG/0.3ML SYR SUBCUT SCH (08:57)
[2024-10-05 09:10] LABS: HEMATOCRIT. 31.1 % (42.0-52.0); HEMOGLOBIN. 10.5 g/dL (14.0-18.0); MEAN CORPUSCULAR HGB CONC 33.7 g/dL (31.0-37.0); MEAN PLATELET VOLUME 8.2 fl (7.4-10.4); PLATELET 180 x1000/uL (130-400); RED BLOOD CELL COUNT 3.38 mill/uL (4.7-6.1); RED CELL DISTRIBUTION WIDTH 13.7 % (11.6-14.6); WHITE BLOOD COUNT 3.9 x1000/uL (4.5-11.0)
[2024-10-05 09:17] LABS: DIFFERENTIAL COMMENT 1
[2024-10-05 15:38] LABS: CLARITY URINE CLEAR (CLEAR); COLOR URINE YELLOW (YELLOW); GLUCOSE URINE NEGATIVE (NEGATIVE); KETONES URINE NEGATIVE (NEGATIVE); LEUKOCYTE ESTERASE URINE TRACE (NEGATIVE); NITRITE URINE NEGATIVE (NEGATIVE); OCCULT BLOOD URINE NEGATIVE (NEGATIVE); PROTEIN URINE NEGATIVE (NEGATIVE); SPECIFIC GRAVITY URINE 1.008 (1.005-1.030); UROBILINOGEN URINE 0.2 E.U./dL (0.2-1.0)
[2024-10-05 15:43] LABS: SODIUM URINE RANDOM 57 mEq/L
[2024-10-05 15:50] LABS: *AMPHETAMINES SCREEN URINE NEGATIVE (NEGATIVE); *BARBITURATES SCREEN URINE NEGATIVE (NEGATIVE); *BENZODIAZEPINES SCREEN URINE NEGATIVE (NEGATIVE); *COCAINE SCREEN URINE NEGATIVE (NEGATIVE); METHADONE URINE SCREEN NEGATIVE (NEGATIVE)
[2024-10-05 15:51] LABS: CANNABINOID URINE SCREEN NEGATIVE (NEGATIVE); ECSTASY MDMA SCREEN URINE NEGATIVE (NEGATIVE); OPIATES URINE SCREEN NEGATIVE (NEGATIVE); PHENCYCLIDINE URINE SCREEN NEGATIVE (NEGATIVE)
[2024-10-05 16:07] LABS: BACTERIA URINE TRACE; RBC URINE NONE SEEN /hpf (0-2); SQUAMOUS EPITHELIAL CELL URINE FEW /lpf (RARE/1+); WBC URINE 0-2 /hpf (0-2)
[2024-10-05 16:21] LABS: OSMOLALITY URINE 277 mOsm/kg (500-850)
[2024-10-05 22:25] LABS: TROPONIN I HIGH SENSITIVITY 40 ng/L (3.0-53)
[2024-10-05 22:50] LABS: PLATELET ESTIMATE NORMAL
[2024-10-06] VITALS: BP 125/49; PULSE 63; RESP 19; TEMP 36.6; O2SAT 100
[2024-10-06 04:00] VITALS: BP 140/49; PULSE 68; RESP 20; TEMP 36.7; O2SAT 100
[2024-10-06] MEDS: AZITHROMYCIN 500MG/250ML 250 ML IV SCH (06:53)
[2024-10-06 07:44] LABS: HEMATOCRIT. 32.2 % (42.0-52.0); HEMOGLOBIN. 10.3 g/dL (14.0-18.0); MEAN CORPUSCULAR HEMOGLOBIN 31.2 pg (28.0-32.0); MEAN CORPUSCULAR HGB CONC 32.1 g/dL (31.0-37.0); MEAN CORPUSCULAR VOLUME 97.2 fL (80.0-94.0); MEAN PLATELET VOLUME 8.8 fl (7.4-10.4); PLATELET 138 x1000/uL (130-400); RED BLOOD CELL COUNT 3.32 mill/uL (4.7-6.1); RED CELL DISTRIBUTION WIDTH 14.5 % (11.6-14.6); WHITE BLOOD COUNT 4.7 x1000/uL (4.5-11.0)
[2024-10-06 07:49] LABS: DIFFERENTIAL COMMENT 1
[2024-10-06 08:00] VITALS: BP 152/40; PULSE 64; RESP 18; TEMP 36.2; O2SAT 96
[2024-10-06 08:11] LABS: CARBON DIOXIDE 26 mEq/L (21-32); CHLORIDE 101 mEq/L (98-107); POTASSIUM 4.6 mEq/L (3.5-5.1); SODIUM 133 mEq/L (136-145)
[2024-10-06 08:12] LABS: CALCIUM 8.6 mg/dL (8.7-10.4)
[2024-10-06 08:17] LABS: CREATININE 1.7 mg/dL (0.6-1.3); GLUCOSE 77 mg/dL (70-105); UREA NITROGEN BLOOD 29 mg/dL (9-23)
[2024-10-06 08:19] LABS: PHOSPHORUS 3.9 mg/dL (2.5-4.9)
[2024-10-06 12:00] VITALS: BP 126/52; PULSE 67; RESP 18; TEMP 36.1; O2SAT 98
[2024-10-06 16:00] VITALS: BP 122/50; PULSE 68; RESP 18; TEMP 36.1; O2SAT 98
[2024-10-06 17:45] LABS: PLATELET ESTIMATE NORMAL
[2024-10-06 18:01] VITALS: BP 126/54; PULSE 68; TEMP 97
== END 2024-10-06 18:25 | disposition home health service (06) | DRG 640 ==
LOC: ER 18:45 → 6WST 10-04 01:29 → 4WST 10-05 18:13 → 6WST 10-05 18:14
PROVIDERS: ADMIT Hospitalist; ATTEND Hospitalist
DX: E87.1 Hypo-osmolality and hyponatremia (principal); J96.01 Acute respiratory failure with hypoxia; I69.354 Hemiplegia and hemiparesis following cerebral infarction affecting left non-dominant side; J84.9 Interstitial pulmonary disease, unspecified; I11.0 Hypertensive heart disease with heart failure; H54.8 Legal blindness, as defined in USA; I35.1 Nonrheumatic aortic (valve) insufficiency; I50.9 Heart failure, unspecified; J44.9 Chronic obstructive pulmonary disease, unspecified; N40.0 Benign prostatic hyperplasia without lower urinary tract symptoms; D72.819 Decreased white blood cell count, unspecified; D64.9 Anemia, unspecified; I48.0 Paroxysmal atrial fibrillation; Z99.81 Dependence on supplemental oxygen; Z99.3 Dependence on wheelchair; Z79.899 Other long term (current) drug therapy
CPT/HCPCS: 36415; 71045; 80048; 80061; 80076; 80305; 81003; 82550; 82607; 82728; 82746; 83540; 83550; 83615; 83735; 83880; 83930; 83935; 84100; 84145; 84300; 84439; 84443; 84484; 85025; 85044; 93005; 97166; 99291; J0456; J0696; J1650; J1940; J3490; J7030